=== PATIENT | female | born 1965 | race Caucasian/White ===

== ENCOUNTER 2021-04-05 23:26 | Inpatient (IN) | payer MEDICARE, OTHER ==
[~2021-04-05] VITALS: Ht 182.9 cm; Wt 140.6 kg
[~2021-04-05 23:26] MED LIST: 12 HOUR NASAL R15 ML; DULERA 100 MCG8.8 GM INH; GLUCOPHAGE1000 MG PO; LOPRESSOR 25 MG25 MG PO; NEURONTIN800 MG PO; NICOTINE PATCH1 EAC1 TOP; PERCOCET 10-321 EACH PO; RANITIDINE HCL300 MG PO; SINGULAIR10 MG PO; SYNTHROID50 MCG PO; TOPROL XL25 MG PO; VENTOLIN HFA 66.7 GM INH; VITAMIN B-1000 MCG/M IM
[2021-04-06 01:37] LABS: HEMOGLOBIN 11.9 gm/dl (12.3-15.3); RED BLOOD COUNT 4.62 M/UL (4.00-5.10); WHITE BLOOD COUNT 21.8 K/UL (4.5-11.0)
[2021-04-06 01:50] LABS: BUN/CREATININE RATIO 11 (0-10)
[2021-04-06] MEDS ORDERED: BREO ELLIPTA 11 EACH INH (05:54)
[2021-04-06] MEDS ORDERED: AMARYL 2MG TABLE2 MG PO (05:56)
[2021-04-06] MEDS ORDERED: LEVOTHYROXINE75 MCG PO (05:57)
[2021-04-06] MEDS ORDERED: OMEPRAZOLE40 MG PO (06:00)
[2021-04-06] MEDS ORDERED: VITAMIN D21250 MCG PO (06:01)
[2021-04-06] MEDS ORDERED: VITAMIN C1000 MG PO (06:03)
[2021-04-06] MEDS ORDERED: VITAMIN B-122500 MCG PO (06:04)
[2021-04-06] MEDS ORDERED: ALBUTEROL2.5 MG/3 M PO (10:35)
[2021-04-06] MEDS ORDERED: XANAX0.25 MG PO (15:27)
[2021-04-07 04:50] LABS: RED BLOOD COUNT 4.34 M/UL (4.00-5.10)
[2021-04-07 04:53] LABS: WHITE BLOOD COUNT 14.5 K/UL (4.5-11.0)
[2021-04-07 05:14] LABS: BUN/CREATININE RATIO 14 (0-10)
--- NOTE | 2021-04-07 16:49 | NUR ---
1640- CONTACTED MD RELATED TO ELEVATED BLOOD GLUCOSE LEVEL. NEW ORDER NOTED
--- NOTE | 2021-04-07 18:29 | NUR ---
182- NOTIFIED OF BLOOD GLUCOSE 555. NEW ORDERS NOTED
[2021-04-08 03:09] LABS: HEMOGLOBIN 10.3 gm/dl (12.3-15.3); RED BLOOD COUNT 4.1 M/UL (4.00-5.10); WHITE BLOOD COUNT 12.3 K/UL (4.5-11.0)
[2021-04-08 03:42] LABS: BUN/CREATININE RATIO 15 (0-10)
[2021-04-08] MEDS ORDERED: DOXYCYCLINE HY100 M2 PO (11:44)
[2021-04-08] MEDS ORDERED: NICOTINE PATCH1 EAC2 TOP (11:44)
[2021-04-08] MEDS ORDERED: ELIQUIS5 MG PO (12:06)
[2021-04-28] MEDS ORDERED: QUETIAPINE FUM200 MG PO (05:58)
[2021-04-28] MEDS ORDERED: ONDANSETRON HCL4 MG PO (05:58)
[2021-05-31] MEDS ORDERED: HYDROCODON-ACE1 EAC6 PO (05:55)
[2021-05-31] MEDS ORDERED: AMIODARONE HCL200 MG PO (05:56)
[2021-05-31] MEDS ORDERED: FENOFIBRATE145 MG PO (06:00)
[2021-05-31] MEDS ORDERED: POTASSIUM CHLO10 ME1 PO (06:01)
== END 2021-04-08 13:31 | disposition home or self-care (01) | DRG 871 ==
LOC: ER1 23:26 → MED SURG 4 04-06 05:16 → CDU 04-06 05:16 → MED SURG 4 04-06 08:20
PROVIDERS: Internal Medicine; Student in an Organized Health Care Education/Training Program; ADMIT Internal Medicine
PROC: B24BZZ4 Ultrasonography of Heart with Aorta, Transesophageal (ICD-10-PCS; principal; 2021-04-06)
DX: A41.9 Sepsis, unspecified organism (principal); J96.01 Acute respiratory failure with hypoxia; J18.9 Pneumonia, unspecified organism; I26.99 Other pulmonary embolism without acute cor pulmonale; I50.21 Acute systolic (congestive) heart failure; J44.1 Chronic obstructive pulmonary disease with (acute) exacerbation; R65.20 Severe sepsis without septic shock; Z20.822 Contact with and (suspected) exposure to COVID-19; I87.8 Other specified disorders of veins; F17.210 Nicotine dependence, cigarettes, uncomplicated; G89.29 Other chronic pain; F41.9 Anxiety disorder, unspecified; E03.9 Hypothyroidism, unspecified; I08.2 Rheumatic disorders of both aortic and tricuspid valves; E66.9 Obesity, unspecified; E11.40 Type 2 diabetes mellitus with diabetic neuropathy, unspecified; I48.0 Paroxysmal atrial fibrillation; Z79.01 Long term (current) use of anticoagulants; Z90.49 Acquired absence of other specified parts of digestive tract; Z87.01 Personal history of pneumonia (recurrent); Z79.82 Long term (current) use of aspirin; Z79.4 Long term (current) use of insulin; Z68.33 Body mass index [BMI] 33.0-33.9, adult
CPT/HCPCS: ECHO; 0240U; 36415; 36600; 71045; 80048; 80053; 81001; 82550; 82553; 82803; 82962; 83605; 83735; 83880; 84100; 84484; 84702; 85025; 85379; 85652; 86140; 87040; 87086; 93005; 93306; 93970; 94640; 94664; 94760; 96365; 96366; 96375; 99285; J0692; J1650; J1940; J2920; J3370; J7030; Q9967

== ENCOUNTER 2021-04-28 10:55 | Observation (INO) | payer MEDICARE, OTHER ==
[~2021-04-28] VITALS: Ht 154.9 cm; Wt 93.0 kg
[~2021-04-28 10:55] MED LIST changes: +ALBUTEROL2.5 MG/3 M PO; +AMARYL 2MG TABLE2 MG PO; +AMIODARONE HCL200 MG PO; +BREO ELLIPTA 11 EACH INH; +DOXYCYCLINE HY100 M2 PO; +ELIQUIS5 MG PO; +FENOFIBRATE145 MG PO; +HYDROCODON-ACE1 EAC6 PO; +LASIX 40 MG TAB40 MG PO; +LEVOTHYROXINE75 MCG PO; +NICOTINE PATCH1 EAC2 TOP; +OMEPRAZOLE40 MG PO; +ONDANSETRON HCL4 MG PO; +POTASSIUM CHLO10 ME1 PO; +QUETIAPINE FUM200 MG PO; +VITAMIN B-122500 MCG PO; +VITAMIN C1000 MG PO; +VITAMIN D21250 MCG PO; +XANAX0.25 MG PO
[2021-04-28 11:33] LABS: HEMOGLOBIN 11.9 gm/dl (12.3-15.3); RED BLOOD COUNT 4.65 M/UL (4.00-5.10); WHITE BLOOD COUNT 9.7 K/UL (4.5-11.0)
[2021-04-28 11:57] LABS: BUN/CREATININE RATIO 11 (0-10)
[2021-04-29 04:28] LABS: HEMOGLOBIN 11.2 gm/dl (12.3-15.3); RED BLOOD COUNT 4.49 M/UL (4.00-5.10)
[2021-04-29] MEDS ORDERED: GLUCAGEN1 MG/1 ML IM (11:51)
[2021-04-29] MEDS ORDERED: GLUTOSE 1537.5 GM PO (11:51)
== END 2021-04-29 12:52 | disposition home or self-care (01) ==
LOC: ER1 10:55 → CDU 12:21 → MED SURG 4 20:30
PROVIDERS: Physician Assistant Medical; Student in an Organized Health Care Education/Training Program; ADMIT Internal Medicine
DX: E11.649 Type 2 diabetes mellitus with hypoglycemia without coma (principal); Z79.84 Long term (current) use of oral hypoglycemic drugs; I26.99 Other pulmonary embolism without acute cor pulmonale; I48.0 Paroxysmal atrial fibrillation; I87.2 Venous insufficiency (chronic) (peripheral); J44.9 Chronic obstructive pulmonary disease, unspecified; M54.9 Dorsalgia, unspecified; G89.29 Other chronic pain; F41.9 Anxiety disorder, unspecified; E03.9 Hypothyroidism, unspecified; K21.9 Gastro-esophageal reflux disease without esophagitis; E66.9 Obesity, unspecified; Z90.49 Acquired absence of other specified parts of digestive tract; Z88.1 Allergy status to other antibiotic agents; Z88.0 Allergy status to penicillin; F17.210 Nicotine dependence, cigarettes, uncomplicated; Z20.822 Contact with and (suspected) exposure to COVID-19
CPT/HCPCS: 36415; 71045; 73562; 80048; 80053; 82550; 82553; 82962; 83690; 83735; 83874; 84100; 84439; 84443; 84484; 85025; 85027; 93005; 94664; 94760; 96372; 99283; G0378; J2354; U0002

== ENCOUNTER 2021-05-31 07:45 | Inpatient (IN) | payer MEDICARE, OTHER ==
[~2021-05-31] VITALS: Ht 182.9 cm; Wt 126.1 kg
[~2021-05-31 07:45] MED LIST changes: +GLUCAGEN1 MG/1 ML IM; +GLUTOSE 1537.5 GM PO; -LASIX 40 MG TAB40 MG PO
[2021-05-31 08:28] LABS: HEMOGLOBIN 11.4 gm/dl (12.3-15.3); RED BLOOD COUNT 4.85 M/UL (4.00-5.10)
[2021-05-31] MEDS ORDERED: AMARYL2 MG PO (14:15)
[2021-05-31] MEDS ORDERED: MOVANTIK25 MG PO (14:16)
[2021-05-31] MEDS ORDERED: LASIX TAB 20 MG20 MG PO (15:30)
[2021-06-01 06:44] LABS: RED BLOOD COUNT 4.55 M/UL (4.00-5.10)
[2021-06-01 06:49] LABS: WHITE BLOOD COUNT 4.5 K/UL (4.5-11.0)
[2021-06-01 07:08] LABS: BUN/CREATININE RATIO 15 (0-10)
[2021-06-01 22:58] LABS: ACINETOBACTER BAUMANNII Not Detected (Negative); CANDIDA ALBICANS Not Detected (Negative); CANDIDA KRUSEI Not Detected (Negative); CANDIDA TROPICALIS Not Detected (Negative); ENTEROCOCCUS Not Detected (Negative); ESCHERICHIA COLI Not Detected (Negative); HAEMOPHILUS INFLUENZAE Not Detected (Negative); KLEBSIELLA OXYTOCA Not Detected (Negative); KLEBSIELLA PNEUMONIAE Not Detected (Negative); KPC-CARBAPENEM-RESISTANCE GENE Not Detected (Negative); PROTEUS Not Detected (Negative); PSEUDOMONAS AERUGINOSA Not Detected (Negative); SERRATIA MARCESANS Not Detected (Negative); STAPHYLOCOCCUS Not Detected (Negative); STAPHYLOCOCCUS AUREUS Not Detected (Negative); STREP AGALACTIAE (GROUP B) Not Detected (Negative); STREP PYOGENES (GROUP A) Not Detected (Negative); STREPTOCOCCUS Not Detected (Negative); mecA (METHICILLIN RESIST GENE Not Detected (Negative); vanA/B (VANCOMYCIN RESIST GENE Not Detected (Negative)
[2021-06-02 03:42] LABS: HEMOGLOBIN 11.3 gm/dl (12.3-15.3); RED BLOOD COUNT 4.69 M/UL (4.00-5.10)
[2021-06-02 03:56] LABS: WHITE BLOOD COUNT 6.6 K/UL (4.5-11.0)
[2021-06-02 04:11] LABS: BUN/CREATININE RATIO 17 (0-10)
[2021-06-02] MEDS ORDERED: DECADRON6 MG PO (13:55)
--- NOTE | 2021-06-02 14:14 | NUR ---
PATIENT ROOM AIR O2 SAT 88%
== END 2021-06-02 16:06 | disposition home or self-care (01) | DRG 177 ==
LOC: ER1 07:45 → CDU 11:16 → M/S 19:00
PROVIDERS: Physician Assistant Medical; Student in an Organized Health Care Education/Training Program; ADMIT Internal Medicine
PROC: 3E0333Z Introduction of Anti-inflammatory into Peripheral Vein, Percutaneous Approach (ICD-10-PCS; principal; 2021-05-31)
PROC: 8E0ZXY6 Isolation (ICD-10-PCS; principal; 2021-05-31)
PROC: XW033E5 Introduction of Remdesivir Anti-infective into Peripheral Vein, Percutaneous Approach, New Technology Group 5 (ICD-10-PCS; principal; 2021-05-31)
DX: U07.1 COVID-19 (principal); J96.01 Acute respiratory failure with hypoxia; J12.82 Pneumonia due to coronavirus disease 2019; J44.9 Chronic obstructive pulmonary disease, unspecified; E11.649 Type 2 diabetes mellitus with hypoglycemia without coma; I87.8 Other specified disorders of veins; K21.9 Gastro-esophageal reflux disease without esophagitis; F17.210 Nicotine dependence, cigarettes, uncomplicated; G89.29 Other chronic pain; F41.9 Anxiety disorder, unspecified; E03.9 Hypothyroidism, unspecified; E66.9 Obesity, unspecified; I48.0 Paroxysmal atrial fibrillation; Z86.711 Personal history of pulmonary embolism; Z79.01 Long term (current) use of anticoagulants; Z90.49 Acquired absence of other specified parts of digestive tract; Z88.1 Allergy status to other antibiotic agents; Z88.0 Allergy status to penicillin; Z68.28 Body mass index [BMI] 28.0-28.9, adult
CPT/HCPCS: 36415; 36600; 71045; 80048; 80053; 82550; 82553; 82803; 82962; 83605; 83735; 83874; 83880; 84484; 85025; 85027; 87040; 87077; 87150; 93005; 94640; 94664; 94760; 96374; 96375; 99285; J0692; J1100; J2930; J7030; J7070; Q9967; U0002

== ENCOUNTER 2022-02-17 14:55 | Inpatient (IN) | payer MEDICARE, OTHER ==
[~2022-02-17] VITALS: Ht 182.9 cm; Wt 126.1 kg
[~2022-02-17 14:55] MED LIST changes: +AMARYL2 MG PO; +DECADRON6 MG PO; +LASIX40 MG PO; +MOVANTIK25 MG PO
[2022-02-17 15:24] LABS: RED BLOOD COUNT 4.59 M/UL (4.00-5.10); WHITE BLOOD COUNT 19.3 K/UL (4.5-11.0)
[2022-02-17 15:49] LABS: BUN/CREATININE RATIO 15 (0-10)
[2022-02-17] MEDS ORDERED: LEVOTHYROXINE100 MCG PO (17:35)
[2022-02-17] MEDS ORDERED: BREO ELLIPTA 11 EACH INH (17:35)
[2022-02-17] MEDS ORDERED: ELIQUIS5 MG PO (17:36)
[2022-02-17] MEDS ORDERED: BUPRENORPHIN-N1 EACH PO (17:36)
[2022-02-17] MEDS ORDERED: TIZANIDINE HCL4 MG PO (17:38)
[2022-02-17] MEDS ORDERED: TRICOR 145 MG145 MG PO (17:58)
[2022-02-17] MEDS ORDERED: GABAPENTIN800 MG PO (17:59)
[2022-02-17] MEDS ORDERED: VITAMIN B-121000 MCG PO (17:59)
[2022-02-17] MEDS ORDERED: VITAMIN C500 M4 PO (17:59)
[2022-02-17 18:08] LABS: BORDETELLA PARAPERTUSSIS Not Detected (Not Detectd); BORDETELLA PERTUSSIS Not Detected (Not Detectd); CHLAMYDIA PNEUMONIAE Not Detected (Not Detectd); CORONAVIRUS HKU1 Not Detected (Not Detectd); CORONAVIRUS NL63 Not Detected (Not Detectd); CORONAVIRUS OC43 Not Detected (Not Detectd); CORONOAVIRUS 229E Not Detected (Not Detectd); HUMAN METAPNEUMOVIRUS Not Detected (Not Detectd); HUMAN RHINOVIRUS/ENTEROVIRUS Not Detected (Not Detectd); INFLUENZA A Not Detected (Not Detectd); INFLUENZA B Not Detected (Not Detectd); MYCOPLASMA PNEUMONIAE Not Detected (Not Detectd); PARAINFLUENZA VIRUS 1 Not Detected (Not Detectd); PARAINFLUENZA VIRUS 2 Not Detected (Not Detectd); PARAINFLUENZA VIRUS 3 Not Detected (Not Detectd); PARAINFLUENZA VIRUS 4 Not Detected (Not Detectd); RESPIRATORY SYNCYTIAL VIRUS Not Detected (Not Detectd)
[2022-02-17 19:14] LABS: SARS-CoV-2 NOT DETECTED (Not Detectd)
[2022-02-18 05:05] LABS: RED BLOOD COUNT 4.21 M/UL (4.00-5.10)
[2022-02-18 05:18] LABS: BUN/CREATININE RATIO 14 (0-10)
[2022-02-19 07:31] LABS: HEMOGLOBIN 11.2 gm/dl (12.3-15.3); RED BLOOD COUNT 4.39 M/UL (4.00-5.10); WHITE BLOOD COUNT 9.5 K/UL (4.5-11.0)
[2022-02-19 07:47] LABS: BUN/CREATININE RATIO 15 (0-10)
[2022-02-20 06:30] LABS: HEMOGLOBIN 10.7 gm/dl (12.3-15.3); RED BLOOD COUNT 4.11 M/UL (4.00-5.10)
[2022-02-20 06:45] LABS: BUN/CREATININE RATIO 15 (0-10)
[2022-02-20] MEDS ORDERED: CEFUROXIME500 MG PO (17:10)
== END 2022-02-20 17:03 | disposition home or self-care (01) | DRG 291 ==
LOC: ER1 14:55 → CDU 17:20 → MED SURG 4 17:20
PROVIDERS: Internal Medicine; ADMIT Internal Medicine Infectious Disease
PROC: 5A09357 Assistance with Respiratory Ventilation, Less than 24 Consecutive Hours, Continuous Positive Airway Pressure (ICD-10-PCS; principal; 2022-02-17)
PROC: 5A09357 Assistance with Respiratory Ventilation, Less than 24 Consecutive Hours, Continuous Positive Airway Pressure (ICD-10-PCS; 2022-02-19)
PROC: 5A09357 Assistance with Respiratory Ventilation, Less than 24 Consecutive Hours, Continuous Positive Airway Pressure (ICD-10-PCS; 2022-02-20)
DX: I11.0 Hypertensive heart disease with heart failure (principal); J96.21 Acute and chronic respiratory failure with hypoxia; I50.33 Acute on chronic diastolic (congestive) heart failure; J96.22 Acute and chronic respiratory failure with hypercapnia; E66.2 Morbid (severe) obesity with alveolar hypoventilation; F17.210 Nicotine dependence, cigarettes, uncomplicated; I48.0 Paroxysmal atrial fibrillation; I87.2 Venous insufficiency (chronic) (peripheral); F41.9 Anxiety disorder, unspecified; J20.9 Acute bronchitis, unspecified; E03.9 Hypothyroidism, unspecified; K21.9 Gastro-esophageal reflux disease without esophagitis; J44.9 Chronic obstructive pulmonary disease, unspecified; E11.9 Type 2 diabetes mellitus without complications; M54.9 Dorsalgia, unspecified; G89.29 Other chronic pain; Z86.718 Personal history of other venous thrombosis and embolism; Z86.16 Personal history of COVID-19; Z79.84 Long term (current) use of oral hypoglycemic drugs; Z79.899 Other long term (current) drug therapy; Z79.01 Long term (current) use of anticoagulants; Z79.4 Long term (current) use of insulin; Z68.37 Body mass index [BMI] 37.0-37.9, adult
CPT/HCPCS: 36415; 36600; 71045; 71046; 80048; 80053; 82550; 82553; 82803; 82962; 83036; 83605; 83735; 83880; 84484; 85025; 85027; 87040; 87633; 93005; 94640; 94660; 94760; 99285; J0456; J0696; J1120; J1940; J7030